=== PATIENT | female | born 1970 | race Caucasian/White ===

== ENCOUNTER 2023-08-17 17:26 | Emergency (ER) | payer BC ==
[2023-08-17] MEDS ORDERED: XYLOCAINE 1% HCL 20 ML MDV ONE (18:41)
--- NOTE | 2023-08-17 18:41 | ERPHSYRPT ---
- History of Present Illness Time Seen by Provider: 08/17/23 18:41 Source: patient Exam Limitations: no limitations Physician History: The patient presents with a foot injury sustained approximately 24 hours prior when a cup tumbler fell onto their foot while it was on a piece of plywood. The injury resulted in a cut from the base to the tip of the toe. The patient initially attempted self-care, believing the wound was closing, but sought medical attention due to persistent bleeding. They report pain upon touch and a tingling sensation. The patient also suspects a possible fracture, but has not sought medical attention for this due to the belief that nothing can be done for a broken toe. They are currently on amoxicillin 500 mg for a dental issue. The patient also has a history of polycystic kidney disease. Method of Injury: direct blow Occurred: yesterday Quality: intermittent, throbbing Severity of Pain-Max: moderate Severity of Pain-Current: moderate Lower Extremities Pain: 2nd toe: left Modifying Factors: Improves With: immobilization. Worsens With: movement Associated Symptoms: none Allergies/Adverse Reactions: No Known Drug Allergies Allergy (Unverified 08/17/23 18:32) Home Medications: Amoxicillin 500 mg PO TID 08/17/23 [History] - Review of Systems All Other Systems: Reviewed and Negative - Past Medical History Cardiac History: Congenital Heart Disease History: Other Other Medical History: POLYCYSTIC DISEASE - Past Surgical History Past Surgical History: Yes Gastrointestinal: Cholecystectomy Female Surgical History: Section - Nursing Vital Signs Nursing Vital Signs: Initial Vital Signs Temperature 97.0 F 08/17/23 18:42 Pulse Rate 69 08/17/23 18:42 Respiratory Rate 18 08/17/23 18:42 Blood Pressure 183/96 08/17/23 18:42 O2 Sat by Pulse Oximetry 98 08/17/23 18:42 Pain Scale Pain Intensity 3 - Physical Exam Comments: Left foot 2nd digit - distal aspect of digit with dried blood, swollen, ecchymosis, TTP, ROM limited by pain, cap refill <2sec Procedures - Laceration/Wound Repair Left Toe Time of Procedure: 19:00 Wound Location: Left, foot (2nd digit) Wound Length (cm): 1 Wound's Depth, Shape: superficial, irregular Wound Explored: contaminated Irrigated: Yes Hibiclens Prep: Yes Anesthesia: 1% Lidocaine Volume Anesthetic (ccs): 3 Wound Debrided: moderate Wound Repaired With: sutures Suture Size/Type: 4-0, nylon Number of Sutures: 3 Sterile Dressing Applied?: Yes Splint Applied?: Yes Type of Splint Applied: post op shoe Sling Applied?: No - Course Nursing assessment & vital signs reviewed: Yes - Radiology Exams Left Foot X-ray Interpretation: Reviewed by me, Teleradiologist Report, Other (2nd digit distal phalanx fracture) Ordered Tests: Active Orders 24 hr Category Date Time Status Splint STAT Care 08/17/23 19:35 Completed Wound Care STAT Care 08/17/23 19:35 Completed FOOT (MINIMUM 3 VIEWS) Stat Exams 08/17/23 18:31 Completed Medication Summary Discontinued Medications Generic Name Dose Route Start Last Admin Trade Name Freq PRN Reason Stop Dose Admin Cephalexin HCl 500 mg 08/17/23 19:09 08/17/23 19:11 Cephalexin Mh500 Mg Capsule PO 08/17/23 19:10 500 mg STAT ONE Administration Cephalexin HCl Confirm 08/17/23 19:10 Cephalexin Mh500 Mg Capsule Administered 08/17/23 19:11 Dose 500 mg .ROUTE .STK-MED ONE Lidocaine HCl 5 ml 08/17/23 18:41 08/17/23 19:08 Lidocaine Hcl 1% 20 Ml Mdv 20 Ml Ml IJ 08/17/23 18:42 5 ml STAT ONE Administration Lidocaine HCl Confirm 08/17/23 18:41 Lidocaine Hcl 1% 20 Ml Mdv 20 Ml Ml Administered 08/17/23 18:42 Dose 5 ml .ROUTE .STK-MED ONE - Progress Progress: improved Counseled pt/family regarding: diagnosis, need for follow-up, rad results Medical Desision Making - Diagnostic Testing Diagnostic test were ordered, analyzed, and reviewed by me: Yes Radiological Interpretation: Interpreted by me - Risk of complications The pt has a mod risk of morbidity or mortality based on: Need for prescription drug management - Departure Departure Disposition: Home Clinical Impression: Distal phalanx or phalanges, closed fracture, Laceration of toe of left foot Condition: Good Critical Care Time: No Referrals: ANSLEY RIVERA MAINTENANCE AND CUSTODIAN SUPERVISOR [Primary Care Provider] - Follow up/PCP as directed EDGAR RIZVI DPM [ACTIVE STAFF] - [facility] [id number] [phone] Instructions: Toe Injury (DC) Prescriptions: Cephalexin Mh 500 mg [Keflex 500 mg] 500 mg PO TID 7 Days #21 cap
[2023-08-17 18:43] VITALS: TEMP 97; O2SAT 98
[2023-08-17] MEDS: XYLOCAINE 1% HCL 20 ML MDV IJ ONE (19:08)
[2023-08-17] MEDS ORDERED: KEFLEX 500 MG ONE (19:10)
[2023-08-17] MEDS: KEFLEX 500 MG PO ONE (19:11)
[2023-08-17 20:01] VITALS: BP 143/91; PULSE 74; RESP 16
--- NOTE | 2023-08-17 21:28 | XRAY ---
Indication: Pain. Crush injury. Comparison: None 3 nonweightbearing views right foot demonstrates nondisplaced tiny 2nd tuft fracture with soft tissue swelling. Incidental mild ankle degenerative changes and small heel spurs. No other bony, articular, or soft tissue abnormalities.
== END 2023-08-17 19:59 | disposition home or self-care (01) ==
LOC: ED 17:26
DX: S92.532B Displaced fracture of distal phalanx of left lesser toe(s), initial encounter for open fracture (principal); W20.8XXA Other cause of strike by thrown, projected or falling object, initial encounter
CPT/HCPCS: 12001; 73630; 96372; 99283; A9270-GY